=== PATIENT | male | born 2000 | race Caucasian/White ===

== ENCOUNTER 2022-01-16 18:43 | Inpatient (IN) ==
--- NOTE | 2022-01-16 18:46 | Emergency Department Note ---
Impression & Plan Depression with suicidal ideation, Anxiety ED Provider Note NAME: HEIDY CASTELLANOS AGE: 21 SEX: M : 2000 ARRIVES VIA: Walk-In INFORMANT: Patient, ED PROVIDER(S): Shay Whitt MD Chief Complaint: Concern for mental wellness, suicidal ideation and plan HPI: Patient presents due to concern for mental wellness issues. The patient states that he has been having frequent mood swings to where he does have extreme highs and extreme lows. Patient states that this is very debilitating. The patient denies any fevers chills chest pains or shortness of breath. The patient has been contemplating suicide [place] Patient states that he has had prior suicidal ideation in the past. Patient states that school is not going well since the mood swings. Patient states that his sleep and appetite varied. Patient does feel safe at home and has no access to guns or weapons. The patient states that he did speak with a psychiatrist from his home as well as to [address] [place] [address] and they both suggested that the patient may be suffering from bipolar disorder and recommended to present here for further evaluation and treatment. The patient would like to seek inpatient treatment at this time. Patient denies any alcohol tobacco or drug use. Patient denies any homicidal ideation or auditory visual hallucinations. ROS: See HPI for pertinent positives and negatives. A total of 10 systems were reviewed and otherwise negative. Past medical history: See below Surgical history: See below Social history: See below Physical Exam: GENERAL: NAD, wearing glasses, wearing a mask, non-toxic. EYE EXAM: Normal conjunctiva. PERRL, no anisocoria and EOM's grossly intact w/o pain. NECK: Supple, no nuchal rigidity, no adenopathy, non-tender. No signs of meningismus. LUNGS: Clear to auscultation. Normal chest wall mechanics. HEART: NSR, no MRG. ABDOMEN: Abdomen soft, non-tender, normo-active bowel sounds, no masses, no rebound or guarding. BACK: No CVA TTP. SKIN: No rashes and no bruising. UPPER EXTREMITIES: Upper extremities are grossly normal. LOWER EXTREMITIES: Grossly normal, no edema. NEURO EXAM: A&O x3, cranial nerves II-XII grossly intact, normal speech, moves all 4 extremities on command w/o issue. Psych: Positive SI, negative HI or AVH. Differential diagnoses: Mood disorder, infection, hypoglycemia, electrolyte abnormalities, cardiac sources, intracerebral event, toxicologic, trauma, neurologic, as well as other pathologies. Course: Patient was seen and evaluated the bedside. Full history physical exam was performed. MDM: Patient was seen due to concern for mental wellness issues. Patient did have blood work completed was to medically cleared. He was seen and evaluated by the psych continuous pillowcase cutter. The patient was accepted to [facility] for voluntary inpatient treatment. Past Med/Surg History Medical History (Updated 01/16/22 @ 22:59 by Shay Whitt MD) Anxiety Depression Surgical History No significant past surgical history Social History (Updated 01/16/22 @ 19:04 by Shay Whitt MD) Smoking Status: Never smoker Hx Alcohol Use: No Hx Substance Use: No Preferred Language: Somali Feels Safe at Home: Yes Allergies Allergies Allergy/AdvReac Type Severity Reaction Status Date / Time No Known Allergies Allergy Verified 08/26/21 23:55 Home Meds Home Medications Medication Instructions Recorded Confirmed fluoxetine 20 mg capsule (Prozac) 20 mg PO QAM 08/20/21 08/26/21 guanfacine 3 mg tablet,extended 3 mg PO QAM 08/20/21 08/26/21 release 24 hr lisdexamfetamine 70 mg capsule 70 mg PO QAM 08/20/21 08/26/21 (Vyvanse) ibuprofen 200 mg tablet (Motrin IB) 400 mg PO USEASDIRECTD PRN 08/26/21 08/26/21 Results & Data (ED) Vital Signs Vital Signs - 24 hr 01/16/22 18:43 01/16/22 19:35 01/16/22 22:38 Temperature 36.8 C Temperature Source Oral Pulse Rate 99 H Pulse Rate [Finger] 90 Respiratory Rate 18 18 Blood Pressure 149/76 H Blood Pressure [Right Arm] 132/76 Blood Pressure Mean [Right Arm] 94 Pulse Oximetry 98 99 Oxygen Delivery Method Room Air Room Air Sepsis Recent Fever Within 48 Hours No Sepsis New/Unexplained Change in Mental Status No Sepsis Action Taken by Nursing No Action Required Home Medications Current Medication List: was personally reviewed by me Laboratory Data Attestation: I reviewed the patient's lab results. Result diagrams: 01/16/22 19:50 01/16/22 19:50 Lab Results 01/16/22 01/16/22 01/16/22 Range/Units 19:35 19:35 19:35 WBC (4.8-10.8) K/uL RBC (4.7-6.1) M/uL Hgb (14.0-18.0) g/dL Hct (42-52) % MCV (80-100) fL MCH (25-34) pg MCHC (32-36) g/dL RDW Std Deviation (36.4-46.3) fL RDW Coeff of Brigida (11.5-14.5) % Plt Count (130-400) K/uL MPV (7.4-10.4) fL Immature Gran % (Auto) % Neut % (Auto) % Lymph % (Auto) % [facility] % (Auto) % Eos % (Auto) % Baso % (Auto) % Neut # (Auto) (1.4-6.5) K/uL Lymph # (Auto) (1.2-3.4) K/uL [facility]lor # (Auto) (0.11-0.59) K/uL Eos # (Auto) (0-0.5) K/uL Baso # (Auto) (0-0.2) K/uL Immature Gran # (Auto) (0.00-0.02) K/uL Sodium (136-145) mmol/L Potassium (3.5-5.1) mmol/L Chloride (98-107) mmol/L Carbon Dioxide (21-32) mmol/L Anion Gap (3-11) BUN (6-23) mg/dl Creatinine (0.6-1.4) mg/dl Est Cr Clr Drug Dosing ml/min Est GFR ( Amer) ml/min Est GFR (Non-Af Amer) ml/min BUN/Creatinine Ratio (10-20) Glucose (70-99(Fasting)) mg/dl Calcium (8.5-10.1) mg/dl Total Bilirubin (0.2-1.0) mg/dl AST (13-39) U/L ALT (7-52) U/L Alkaline Phosphatase (34-104) U/L Total Protein (6.0-8.3) gm/dl Albumin (3.4-5.0) gm/dl Globulin (2.5-4.0) gm/dl Albumin/Globulin Ratio (0.9-2) TSH (0.300-4.500) uIu/ml Urine Color Yellow Urine Appearance Turbid A (Clear) Urine pH 6.5 (4.5-7.5) Ur Specific [place] 1.025 (1.000-1.030) Urine Protein Negative (Negative) Urine Glucose (UA) Negative (Negative) Urine Ketones Negative (Negative) Urine Blood Negative (Negative) Urine Nitrite Negative (Negative) Urine Bilirubin Negative (Negative) Urine Urobilinogen Negative (Negative) Ur Leukocyte Esterase Negative (Negative) Urine WBC (Auto) 1-5 (0-5) /hpf Urine RBC (Auto) 10-30 H (0-4) /hpf U Hyaline Cast (Auto) 1-5 (0-5) /lpf U Epithel Cells (Auto) 20-30 H (0-5) /lpf Urine Bacteria (Auto) Negative (Negative) Salicylates (3.0-30) mg/dl Urine Opiates Screen Neg (Neg) Ur Methadone, Qual Neg (Neg) Acetaminophen (10-30) ug/ml Urine Barbiturates Neg (Neg) Ur Phencyclidine (PCP) Neg (Neg) U Amphetamin/Meth Scrn Neg (Neg) MDMA (Ecstasy) Screen Neg (Neg) U Benzodiazepines Scrn Neg (Neg) Ur Cocaine Metabolite Neg (Neg) U Marijuana (THC) Screen Neg (Neg) Ethyl Alcohol mg/dL (<10.0) mg/dl SARS-CoV-2, RNA, NAAT NEGATIVE (NEGATIVE) 01/16/22 01/16/22 01/16/22 Range/Units 19:50 19:50 19:50 WBC 6.95 (4.8-10.8) K/uL RBC 5.03 (4.7-6.1) M/uL Hgb 15.3 (14.0-18.0) g/dL Hct 45.8 (42-52) % MCV 91.1 (80-100) fL MCH 30.4 (25-34) pg MCHC 33.4 (32-36) g/dL RDW Std Deviation 45.8 (36.4-46.3) fL RDW Coeff of Brigida 13.7 (11.5-14.5) % Plt Count 323 (130-400) K/uL MPV 10.5 H (7.4-10.4) fL Immature Gran % (Auto) 0.4 % Neut % (Auto) 58.7 % Lymph % (Auto) 30.5 % Baylor % (Auto) 8.3 % Eos % (Auto) 2.0 % Baso % (Auto) 0.1 % Neut # (Auto) 4.07 (1.4-6.5) K/uL Lymph # (Auto) 2.12 (1.2-3.4) K/uL Baylor # (Auto) 0.58 (0.11-0.59) K/uL Eos # (Auto) 0.14 (0-0.5) K/uL Baso # (Auto) 0.01 (0-0.2) K/uL Immature Gran # (Auto) 0.03 H (0.00-0.02) K/uL Sodium 139 (136-145) mmol/L Potassium 3.9 (3.5-5.1) mmol/L Chloride 102 (98-107) mmol/L Carbon Dioxide 28 (21-32) mmol/L Anion Gap 9 (3-11) BUN 14 (6-23) mg/dl Creatinine 0.58 L (0.6-1.4) mg/dl Est Cr Clr Drug Dosing 211.5 ml/min Est GFR ( Amer) > 150.0 ml/min Est GFR (Non-Af Amer) 147.8 ml/min BUN/Creatinine Ratio 24.1 H (10-20) Glucose 103 H (70-99(Fasting)) mg/dl Calcium 9.9 (8.5-10.1) mg/dl Total Bilirubin 0.3 (0.2-1.0) mg/dl AST 33 (13-39) U/L ALT 63 H (7-52) U/L Alkaline Phosphatase 110 H (34-104) U/L Total Protein 7.8 (6.0-8.3) gm/dl Albumin 4.8 (3.4-5.0) gm/dl Globulin 3.0 (2.5-4.0) gm/dl Albumin/Globulin Ratio 1.6 (0.9-2) TSH 1.185 (0.300-4.500) uIu/ml Urine Color Urine Appearance (Clear) Urine pH (4.5-7.5) Ur Specific [place] (1.000-1.030) Urine Protein (Negative) Urine Glucose (UA) (Negative) Urine Ketones (Negative) Urine Blood (Negative) Urine Nitrite (Negative) Urine Bilirubin (Negative) Urine Urobilinogen (Negative) Ur Leukocyte Esterase (Negative) Urine WBC (Auto) (0-5) /hpf Urine RBC (Auto) (0-4) /hpf U Hyaline Cast (Auto) (0-5) /lpf U Epithel Cells (Auto) (0-5) /lpf Urine Bacteria (Auto) (Negative) Salicylates (3.0-30) mg/dl Urine Opiates Screen (Neg) Ur Methadone, Qual (Neg) Acetaminophen (10-30) ug/ml Urine Barbiturates (Neg) Ur Phencyclidine (PCP) (Neg) U Amphetamin/Meth Scrn (Neg) MDMA (Ecstasy) Screen (Neg) U Benzodiazepines Scrn (Neg) Ur Cocaine Metabolite (Neg) U Marijuana (THC) Screen (Neg) Ethyl Alcohol mg/dL (<10.0) mg/dl SARS-CoV-2, RNA, NAAT (NEGATIVE) 01/16/22 01/16/22 Range/Units 19:50 19:50 WBC (4.8-10.8) K/uL RBC (4.7-6.1) M/uL Hgb (14.0-18.0) g/dL Hct (42-52) % MCV (80-100) fL MCH (25-34) pg MCHC (32-36) g/dL RDW Std Deviation (36.4-46.3) fL RDW Coeff of Brigida (11.5-14.5) % Plt Count (130-400) K/uL MPV (7.4-10.4) fL Immature Gran % (Auto) % Neut % (Auto) % Lymph % (Auto) % Baylor % (Auto) % Eos % (Auto) % Baso % (Auto) % Neut # (Auto) (1.4-6.5) K/uL Lymph # (Auto) (1.2-3.4) K/uL Baylor # (Auto) (0.11-0.59) K/uL Eos # (Auto) (0-0.5) K/uL Baso # (Auto) (0-0.2) K/uL Immature Gran # (Auto) (0.00-0.02) K/uL Sodium (136-145) mmol/L Potassium (3.5-5.1) mmol/L Chloride (98-107) mmol/L Carbon Dioxide (21-32) mmol/L Anion Gap (3-11) BUN (6-23) mg/dl Creatinine (0.6-1.4) mg/dl Est Cr Clr Drug Dosing ml/min Est GFR ( Amer) ml/min Est GFR (Non-Af Amer) ml/min BUN/Creatinine Ratio (10-20) Glucose (70-99(Fasting)) mg/dl Calcium (8.5-10.1) mg/dl Total Bilirubin (0.2-1.0) mg/dl AST (13-39) U/L ALT (7-52) U/L Alkaline Phosphatase (34-104) U/L Total Protein (6.0-8.3) gm/dl Albumin (3.4-5.0) gm/dl Globulin (2.5-4.0) gm/dl Albumin/Globulin Ratio (0.9-2) TSH (0.300-4.500) uIu/ml Urine Color Urine Appearance (Clear) Urine pH (4.5-7.5) Ur Specific [place] (1.000-1.030) Urine Protein (Negative) Urine Glucose (UA) (Negative) Urine Ketones (Negative) Urine Blood (Negative) Urine Nitrite (Negative) Urine Bilirubin (Negative) Urine Urobilinogen (Negative) Ur Leukocyte Esterase (Negative) Urine WBC (Auto) (0-5) /hpf Urine RBC (Auto) (0-4) /hpf U Hyaline Cast (Auto) (0-5) /lpf U Epithel Cells (Auto) (0-5) /lpf Urine Bacteria (Auto) (Negative) Salicylates < 3.0 L (3.0-30) mg/dl Urine Opiates Screen (Neg) Ur Methadone, Qual (Neg) Acetaminophen < 3 L (10-30) ug/ml Urine Barbiturates (Neg) Ur Phencyclidine (PCP) (Neg) U Amphetamin/Meth Scrn (Neg) MDMA (Ecstasy) Screen (Neg) U Benzodiazepines Scrn (Neg) Ur Cocaine Metabolite (Neg) U Marijuana (THC) Screen (Neg) Ethyl Alcohol mg/dL < 10.0 (<10.0) mg/dl SARS-CoV-2, RNA, NAAT (NEGATIVE) Discharge Plan Visit Data Chief Complaint: Mental Health Evaluation Stated Complaint: [facility] ED Provider: Shay Whitt Discharge Problem: Depression with suicidal ideation, Anxiety Patient Disposition: Admitted As Inpatient Discharge Instructions Interventions: ED Discharge Assessment Last Done: 01/16/22 22:38
[2022-01-16 19:49] LABS: Appearance Urine Turbid (Clear); Bacteria Urine Automated Negative (Negative); Bilirubin Urine Negative (Negative); Blood Urine Negative (Negative); Color Urine Yellow; Epithelial Cell Urine Auto 20-30 /lpf (0-5); Glucose Urine UA Negative (Negative); Ketones Urine Negative (Negative); Leukocyte Esterase Urine Negative (Negative); Nitrite Urine Negative (Negative); Protein Urine Negative (Negative); Specific Gravity Urine 1.025 (1.000-1.030); Urobilinogen Urine Negative (Negative); pH Urine 6.5 (4.5-7.5)
[2022-01-16 20:17] LABS: Basophils # (auto) 0.01 K/uL (0-0.2); Basophils % (auto) 0.1 %; Eosinophils # (auto) 0.14 K/uL (0-0.5); Hematocrit (blood only) 45.8 % (42-52); Hemoglobin 15.3 g/dL (14.0-18.0); Immature Granulocytes # (auto) 0.03 K/uL (0.00-0.02); Immature Granulocytes % (auto) 0.4 %; Lymphocytes # (auto) 2.12 K/uL (1.2-3.4); Lymphocytes % (auto) 30.5 %; Mean Corpuscular Hemoglobin 30.4 pg (25-34); Mean Corpuscular Hgb Conc 33.4 g/dL (32-36); Mean Corpuscular Volume 91.1 fL (80-100); Mean Platelet Volume 10.5 fL (7.4-10.4); Monocytes # (auto) 0.58 K/uL (0.11-0.59); Monocytes % (auto) 8.3 %; Neutrophils # (auto) 4.07 K/uL (1.4-6.5); Neutrophils % (auto) 58.7 %; Platelet Count 323 K/uL (130-400); RDW Coefficient of Variation 13.7 % (11.5-14.5); RDW Standard Deviation 45.8 fL (36.4-46.3); Red Blood Count 5.03 M/uL (4.7-6.1); White Blood Count 6.95 K/uL (4.8-10.8)
[2022-01-16 20:20] LABS: Amphetamines+Metham, Urine Neg (Neg); Barbiturates, Urine Neg (Neg); Benzodiazepine, Urine Neg (Neg); Cocaine, Urine Neg (Neg); MDMA (Ecstacy), Urine Neg (Neg); Methadone, Urine Neg (Neg); Opiate, Urine Neg (Neg); Phencyclidine, Urine Neg (Neg)
[2022-01-16 20:41] LABS: Alanine Aminotransferase 63 U/L (7-52); Albumin Globulin Ratio 1.6 (0.9-2); Albumin Level 4.8 gm/dl (3.4-5.0); Alkaline Phosphatase 110 U/L (34-104); Anion Gap 9 (3-11); Aspartate Aminotransferase 33 U/L (13-39); BUN Creatinine Ratio 24.1 (10-20); Bilirubin,Total 0.3 mg/dl (0.2-1.0); Blood Urea Nitrogen 14 mg/dl (6-23); Calcium 9.9 mg/dl (8.5-10.1); Carbon Dioxide 28 mmol/L (21-32); Chloride 102 mmol/L (98-107); Creatinine Clr Calc Pharmacy 211.5 ml/min; Est GFR (African American) > 150.0 ml/min; Est GFR (Non-African American) 147.8 ml/min; Glucose 103 mg/dl (70-99(Fasting)); Potassium 3.9 mmol/L (3.5-5.1); Sodium 139 mmol/L (136-145); Total Protein 7.8 gm/dl (6.0-8.3)
[2022-01-16 20:43] LABS: Acetaminophen < 3 ug/ml (10-30); Salicylate < 3.0 mg/dl (3.0-30)
[2022-01-16] MEDS ORDERED: hydrOXYzine HCl 25 MG TAB PO PRN (22:28)
[2022-01-16] MEDS ORDERED: BISMUTH SUBSALICYLATE LIQD 236 ML PO PRN (22:28)
[2022-01-16] MEDS ORDERED: ALUMINUM/MAGNESIUM SUSP 30 ML UDC PO PRN (22:28)
[2022-01-16] MEDS ORDERED: MAGNESIUM HYDROXIDE SUSP 30 ML UDC PO PRN (22:28)
[2022-01-16] MEDS ORDERED: ACETAMINOPHEN 325 MG TAB PO PRN (22:28)
[2022-01-17] MEDS ORDERED: FLUARIX QUADRIVALENT 0.5 ML SYR IM ONE (00:25)
--- NOTE | 2022-01-17 12:56 | History & Physical ---
Date of Service January 17, 2022 Impression / Recommendations Impression Heidy is a 21 yo male who presents with significant vegetative depression and recent SI with near attempt by jumping from a bridge during a mixed phase. He describes clear but brief periods of hypomania. The cycling interferes with his ability to function with school even as his ADHD is treated. He has been on stimulant medication for more than a decade so it is unlikely a major contributor to his mood changes. (1) Bipolar II disorder with or without full interepisode recovery: (2) Attention deficit disorder (ADD) in adult: The patient was admitted to the [facility] on q15 min checks (behavioral with suicide precautions) for safety. The patient will participate in group, recreational, and milieu therapies and will be offered additional individual and family sessions as clinically appropriate. His home medications were held on admission as antidepressants can contribute to cycling and his Vyvanse is non formulary. Guanfacine ER will be ordered as reviewed risks/benefits and likely helpful for tics. Risks/benefits/alternatives were reviewed re: antipsychotics for mood. Discussion included but was not limited to metabolic side effects, risks of TD and suicidal thoughts. There were no abnormal motor movements other than the rare facial tics at baseline. Fasting glucose and lipid panel ordered for baseline monitoring. Also discussed options of lithium or lamictal. Patient preferred trial of Abilify given how rapidly he could benefit. Will begin 2.5 mg today and then 5 mg qam starting tomorrow. Inventory Assets Strengths: sought help, intelligent Needs: medical withdrawal, family involvement Risk Factors Assessment Male: Yes Do You Have Access To A Gun?: No (not in dorm but need to confirm at home in [place]) Mental Health Diagnoses: Yes Substance Use Disorders: No Previous Attempt: Yes (multiple near attempts (acts of furtherance)) Previous Psychiatric Hospitalization: No Protective Factors Assessment Employed: No Supportive Family: Yes Good Rapport with Provider: Yes Psychiatric History Identifying Data HEIDY CASTELLANOS is a 21-year-old M, [employer] freshman from [place], has a history of undisclosed near suicide attempts, and was admitted on 01/16/22 22:49 on a 201 voluntary commitment for SI with plan. Chief Complaint "My mood has been all over the place and yes a few days ago I would have jumped if my body hadn't froze". History of Present Illness Heidy was referred by [facility] following a crisis call as he was experiencing severe depression and had act of furtherance by going to a bridge with the intention to commit suicide 2 days prior. He reports that he couldn't focus and had "mixed" depression and restlessness and "couldn't stand it anymore, I'm useless with school and can't focus". Since Friday he has been essentially in bed, hypersomnolent (sleeping greater than 10 hours and still being tired), and not eating well. "I have to force myself to eat." He notes anhedonia and inability to process where as a few days prior he had racing thoughts, increased energy, and feeling somewhat impulsive. He reports a recent period of inflated self esteem (though can't think of an example). During periods of elevated mood that last about 4-5 days he will sleep 3 hours a night and be "super productive" with increased rate of speech. He buys "stupid stuff". He becomes less productive due to fatigue as the episode progresses. His depressed periods can last 2-5 weeks. He is functioning so poorly that he is thinking of withdrawing for the semester and going home but he is hesitant to tell his parents "everything" as he worries they will make him attend school closer to home. He denies psychotic symptoms. He reports taking his prescribed medications regularly. He was rather evasive re: details of past near suicide attempts, one in 2018 sounds like he may have considered jumping as well and perhaps 2 occasions having a gun out at home. Past Psychiatric History Current Psychiatric Diagnosis: depression with SI, anxiety Previous Psych Admissions: none Do You Have Access To A Gun?: No (not in dorm but need to confirm at home in [place]) Describe Attempts in the Past: prior near attempt to jump from bridge, two near attempts with firearm Past Medication Trials: only current meds per patient (fluoxetine 20 mg, Intuniv 3 mg, lisdexamfetamine 70 mg), was dx with ADHD at age 8 and on Vyvanse "since"; denies a history of tics related to ADHD or stimulant medication Past Head Trauma/Neuro History History of Concussion/Seizure: No Allergies Allergy/AdvReac Type Severity Reaction Status Date / Time No Known Allergies Allergy Verified 08/26/21 23:55 Home Medications Medication Instructions Recorded Confirmed Type fluoxetine 20 mg capsule (Prozac) 20 mg PO QAM 08/20/21 08/26/21 History guanfacine 3 mg tablet,extended 3 mg PO QAM 08/20/21 08/26/21 History release 24 hr lisdexamfetamine 70 mg capsule 70 mg PO QAM 08/20/21 08/26/21 History (Vyvanse) ibuprofen 200 mg tablet (Motrin IB) 400 mg PO USEASDIRECTD PRN 08/26/21 08/26/21 History Family History Family History of: None Alcohol History Hx of Alcohol Use Over the Past 12 Months: No AUDIT Total Score: 0 Smoking Use Have You Smoked or Used Tobacco Products in the Last 30 Days: No Smoking Status: Never smoker Substance History Hx of Prescription Med Misuse Over the Past 12 Months: No Hx of Over the Counter Med Misuse Over the Past 12 Months: No Hx of Inhalent Misuse Over the Past 12 Months: No Hx of Organic Substance Use Over the Past 12 Months: No Hx of Illegal Substances/Street Drug Use Over Past 12 Months: No Problems as a Result of Past Substance Use: None Identified Personal History Living Arrangements: Dorm Living Arrangements Comments: lives with one roommate in dorm on campus Childhood: only child, parents , fair relationship with parents Highest Grade Completed: Some College Highest Grade Completed Comment: currently a Freshman at [employer], 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 Employment Status: Student Marital Status: Single Number Of Children: 0 Beliefs That Will Affect Care: None Current Legal Problems: No Hx Traumatic Life Events: No Patient History Medical History Anxiety Depression Surgical History No significant past surgical history Social History Smoking Status: Never smoker Hx Alcohol Use: No Hx Substance Use: No Preferred Language: Swedish Communication Ability: Effective 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 Beliefs That Will Affect Care: None Feels Safe at Home: Yes Assistive Devices: Glasses Review of Systems Review of Systems: All systems reviewed & are unremarkable except as noted in HPI & below Physical Exam Psychiatric: Orientation: alert and oriented x 3 Apperance: appropriately dressed and appropriately groomed Eye Contact: good eye contact Motor Behavior: + abnormal motor movements (rare facial tic) Speech: normal rate/rhythm/volume of speech Affect: + depressed affect Mood: + depressed mood Thought Process: goal directed thought process Thought Content: reality based without delusions Suicidal Thoughts: denies suicidal intent (on unit); + reports suicidal thoughts and + reports suicidal plan (jump from bridge) Homicidal Thoughts: denies homicidal thoughts Hallucinations: no auditory hallucinations and no visual hallucinations Cognition: attention grossly intact and language grossly intact Estimated Intelligence: consistent with education level Insight: + limited insight Judgement: + limited judgement Vital Signs (Past 24 Hours): Last Vital Signs Temp 36.5 C 01/17/22 06:39 Pulse 96 H 01/17/22 06:40 Resp 16 01/17/22 06:39 BP 124/86 01/17/22 06:40 Pulse Ox 99 01/17/22 00:02 Exam Statement: A physical exam was performed in the ED by Dr. Whitt for the purposes of medical clearance. I accept that physical as correct and adequate for the purposes of the inpatient physical exam. Results & Data ([facility]) Laboratory Results Laboratory Results - last 24 hr 01/16/22 01/16/22 01/16/22 19:35 19:35 19:35 WBC RBC Hgb Hct MCV MCH MCHC RDW Std Deviation RDW Coeff of Brigida Plt Count MPV Immature Gran % (Auto) Neut % (Auto) Lymph % (Auto) Bennett % (Auto) Eos % (Auto) Baso % (Auto) Neut # (Auto) Lymph # (Auto) Bennett # (Auto) Eos # (Auto) Baso # (Auto) Immature Gran # (Auto) Sodium Potassium Chloride Carbon Dioxide Anion Gap BUN Creatinine Est Cr Clr Drug Dosing Est GFR ( Amer) Est GFR (Non-Af Amer) BUN/Creatinine Ratio Glucose Calcium Total Bilirubin AST ALT Alkaline Phosphatase Total Protein Albumin Globulin Albumin/Globulin Ratio TSH Urine Color Yellow Urine Appearance Turbid A Urine pH 6.5 Ur Specific [place] 1.025 Urine Protein Negative Urine Glucose (UA) Negative Urine Ketones Negative Urine Blood Negative Urine Nitrite Negative Urine Bilirubin Negative Urine Urobilinogen Negative Ur Leukocyte Esterase Negative Urine WBC (Auto) 1-5 Urine RBC (Auto) 10-30 H U Hyaline Cast (Auto) 1-5 U Epithel Cells (Auto) 20-30 H Urine Bacteria (Auto) Negative Salicylates Urine Opiates Screen Neg Ur Methadone, Qual Neg Acetaminophen Urine Barbiturates Neg Ur Phencyclidine (PCP) Neg U Amphetamin/Meth Scrn Neg MDMA (Ecstasy) Screen Neg U Benzodiazepines Scrn Neg Ur Cocaine Metabolite Neg U Marijuana (THC) Screen Neg Ethyl Alcohol mg/dL SARS-CoV-2, RNA, NAAT NEGATIVE 01/16/22 01/16/22 01/16/22 19:50 19:50 19:50 WBC 6.95 RBC 5.03 Hgb 15.3 Hct 45.8 MCV 91.1 MCH 30.4 MCHC 33.4 RDW Std Deviation 45.8 RDW Coeff of Brigida 13.7 Plt Count 323 MPV 10.5 H Immature Gran % (Auto) 0.4 Neut % (Auto) 58.7 Lymph % (Auto) 30.5 Bennett % (Auto) 8.3 Eos % (Auto) 2.0 Baso % (Auto) 0.1 Neut # (Auto) 4.07 Lymph # (Auto) 2.12 Bennett # (Auto) 0.58 Eos # (Auto) 0.14 Baso # (Auto) 0.01 Immature Gran # (Auto) 0.03 H Sodium 139 Potassium 3.9 Chloride 102 Carbon Dioxide 28 Anion Gap 9 BUN 14 Creatinine 0.58 L Est Cr Clr Drug Dosing 211.5 Est GFR ( Amer) > 150.0 Est GFR (Non-Af Amer) 147.8 BUN/Creatinine Ratio 24.1 H Glucose 103 H Calcium 9.9 Total Bilirubin 0.3 AST 33 ALT 63 H Alkaline Phosphatase 110 H Total Protein 7.8 Albumin 4.8 Globulin 3.0 Albumin/Globulin Ratio 1.6 TSH 1.185 Urine Color Urine Appearance Urine pH Ur Specific [place] Urine Protein Urine Glucose (UA) Urine Ketones Urine Blood Urine Nitrite Urine Bilirubin Urine Urobilinogen Ur Leukocyte Esterase Urine WBC (Auto) Urine RBC (Auto) U Hyaline Cast (Auto) U Epithel Cells (Auto) Urine Bacteria (Auto) Salicylates Urine Opiates Screen Ur Methadone, Qual Acetaminophen Urine Barbiturates Ur Phencyclidine (PCP) U Amphetamin/Meth Scrn MDMA (Ecstasy) Screen U Benzodiazepines Scrn Ur Cocaine Metabolite U Marijuana (THC) Screen Ethyl Alcohol mg/dL SARS-CoV-2, RNA, NAAT 01/16/22 01/16/22 19:50 19:50 WBC RBC Hgb Hct MCV MCH MCHC RDW Std Deviation RDW Coeff of Brigida Plt Count MPV Immature Gran % (Auto) Neut % (Auto) Lymph % (Auto) Bennett % (Auto) Eos % (Auto) Baso % (Auto) Neut # (Auto) Lymph # (Auto) Bennett # (Auto) Eos # (Auto) Baso # (Auto) Immature Gran # (Auto) Sodium Potassium Chloride Carbon Dioxide Anion Gap BUN Creatinine Est Cr Clr Drug Dosing Est GFR ( Amer) Est GFR (Non-Af Amer) BUN/Creatinine Ratio Glucose Calcium Total Bilirubin AST ALT Alkaline Phosphatase Total Protein Albumin Globulin Albumin/Globulin Ratio TSH Urine Color Urine Appearance Urine pH Ur Specific [place] Urine Protein Urine Glucose (UA) Urine Ketones Urine Blood Urine Nitrite Urine Bilirubin Urine Urobilinogen Ur Leukocyte Esterase Urine WBC (Auto) Urine RBC (Auto) U Hyaline Cast (Auto) U Epithel Cells (Auto) Urine Bacteria (Auto) Salicylates < 3.0 L Urine Opiates Screen Ur Methadone, Qual Acetaminophen < 3 L Urine Barbiturates Ur Phencyclidine (PCP) U Amphetamin/Meth Scrn MDMA (Ecstasy) Screen U Benzodiazepines Scrn Ur Cocaine Metabolite U Marijuana (THC) Screen Ethyl Alcohol mg/dL < 10.0 SARS-CoV-2, RNA, NAAT Current Inpatient Medications Current Inpatient Medications: Current Inpatient Medications Acetaminophen (Acetaminophen 325 Mg Tab) 650 mg PO Q4H PRN PRN Reason: Headache or Minor Fever Stop: 02/15/22 22:27 Al Hydrox/Mg Hydrox/Simethicone (Aluminum/Magnesium Susp 30 Ml Udc) 30 ml PO Q4H PRN PRN Reason: GI Upset Stop: 02/15/22 22:27 Bismuth Subsalicylate (Bismuth Subsalicylate Liqd 236 Ml) 15 ml PO PRN PRN PRN Reason: Loose Stool Stop: 02/15/22 22:27 Hydroxyzine HCl (Hydroxyzine Hcl 25 Mg Tab) 50 mg PO HSZ PRN PRN Reason: Insomnia Stop: 02/15/22 22:27 Hydroxyzine HCl (Hydroxyzine Hcl 25 Mg Tab) 25 mg PO Q4H PRN PRN Reason: Anxiety Stop: 02/15/22 22:27 Magnesium Hydroxide (Magnesium Hydroxide Susp 30 Ml Udc) 30 ml PO DAILY PRN PRN Reason: Constipation Stop: 02/15/22 22:27 Sodium Chloride (Sodium Chloride 0.65% Na Soln 45 Ml (Sandoval)) 1 - 2 sprays NA PRN PRN PRN Reason: Nasal Dryness/Congestion Stop: 02/15/22 22:27
[2022-01-17] MEDS ORDERED: ARIPiprazole 5 MG TAB PO ONE (13:15)
[2022-01-18 08:59] LABS: Chol HDL Ratio 8.2 (0-5)
[2022-01-18] MEDS: ARIPiprazole 5 MG TAB PO SCH (09:07)
--- NOTE | 2022-01-18 11:20 | Psychiatric Progress Note ---
Date of Service January 18, 2022 Impression / Recommendations Karina Fabian is a 21 yo male who presents with significant vegetative depression and recent SI with near attempt by jumping from a bridge during a mixed phase. He describes clear but brief periods of hypomania. The cycling interferes with his ability to function with school even as his ADHD is treated. He has been on stimulant medication for more than a decade so it is unlikely a major contributor to his mood changes. 01/18/22: no significant change, tolerating Abilify. Unclear if realistic for him to "catch up" on 3-4 weeks of work or if parents truly aware of the severity of his condition. (1) Bipolar II disorder with or without full interepisode recovery: (2) Attention deficit disorder (ADD) in adult: (3) Hypercholesterolemia with hypertriglyceridemia: 01/18/22: routine screening, will need f/u with PCP and possibly transportation manager. 01/18/22: declines trial of Adderall to replace non-formulary Vyvanse. Does feel his mood was wose on 70 mg Vyvanse and reports his most recent rx was for 20 mg. He is thinking would like prn stimulant upon discharge. Needs family meeting and confirmation re: guns at home as even if returns to school, spring break is near. 01/17/22: The patient was admitted to the [facility] (health system mental health unit) on q15 min checks (behavioral with suicide precautions) for safety. The patient will participate in group, recreational, and milieu therapies and will be offered additional individual and family sessions as clinically appropriate. His home medications were held on admission as antidepressants can contribute to cycling and his Vyvanse is non formulary. Guanfacine ER will be ordered as reviewed risks/benefits and likely helpful for tics. Risks/benefits/alternatives were reviewed re: antipsychotics for mood. Discussion included but was not limited to metabolic side effects, risks of TD and suicidal thoughts. There were no abnormal motor movements other than the rare facial tics at baseline. Fasting glucose and lipid panel ordered for baseline monitoring. Also discussed options of lithium or lamictal. Patient preferred trial of Abilify given how rapidly he could benefit. Will begin 2.5 mg today and then 5 mg qam starting tomorrow. Inventory Assets Strengths: sought help, intelligent Needs: medical withdrawal, family involvement Risk Factors Assessment Male: Yes Do You Have Access To A Gun?: No (not in dorm but need to confirm at home in [place]) Mental Health Diagnoses: Yes Substance Use Disorders: No Previous Attempt: Yes (multiple near attempts (acts of furtherance)) Previous Psychiatric Hospitalization: No Protective Factors Assessment Employed: No Supportive Family: Yes Good Rapport with Provider: Yes Interval History Identifying Information HEIDY CASTELLANOS is a 21-year-old M, [employer] freshman from [place], has a history of undisclosed near suicide attempts, and was admitted on 01/16/22 22:49 on a 201 voluntary commitment for SI with plan. Chief Complaint "I don't feel any different yet---low energy and motivation". Review of Systems Sleep Information Total Hours of Sleep: 8.75 Sleep Comments: pt appeared to sleep 1.75 hrs during evening shift. pt on q-15 minute checks Meal Information Percent Meal Consumed - Breakfast: 100 Percent Meal Consumed - Lunch: 100 Percent Meal Consumed - Dinner: 100 Subjective Subjective Patient was seen & assessed and interval progress reviewed with treatment team. Patient reports telling his father about the hospitalization and they are both focussed on him getting back to class "as soon as possible". Reviewed with patient that we need to confirm that his parents are aware of the severity of his symptoms. He now reports a medical withdrawal last semester and "we won't get the money back this time." Denies side effects from Abilify. Rather quiet in groups and flat in appearance. Physical Exam Psychiatric Orientation: alert and oriented x 3 Apperance: appropriately dressed and appropriately groomed Eye Contact: good eye contact Motor Behavior: no abnormal motor movements Speech: normal rate/rhythm/volume of speech Affect: + depressed affect Mood: + depressed mood Thought Process: goal directed thought process Thought Content: reality based without delusions Suicidal Thoughts: denies suicidal intent (on unit); + reports suicidal thoughts and + reports suicidal plan (jump from bridge) Homicidal Thoughts: denies homicidal thoughts Hallucinations: no auditory hallucinations and no visual hallucinations Cognition: attention grossly intact and language grossly intact Estimated Intelligence: consistent with education level Insight: + limited insight Judgement: + limited judgement Vital Signs (Past 24 Hours) Last Vital Signs Temp 36.6 C 01/18/22 06:43 Pulse 94 H 01/18/22 06:44 Resp 16 01/18/22 06:43 BP 105/69 01/18/22 06:44 Pulse Ox 99 01/17/22 00:02 Results & Data ([facility]) Laboratory Results Laboratory Results - last 24 hr 01/18/22 07:50 Fasting Glucose 93 Triglycerides 372 H Cholesterol 288 H LDL Cholesterol, Calc 179 VLDL Cholesterol, Calc 74 H HDL Cholesterol 35 Cholesterol/HDL Ratio 8.2 H Current Inpatient Medications Current Inpatient Medications: Current Inpatient Medications Acetaminophen (Acetaminophen 325 Mg Tab) 650 mg PO Q4H PRN PRN Reason: Headache or Minor Fever Stop: 02/15/22 22:27 Al Hydrox/Mg Hydrox/Simethicone (Aluminum/Magnesium Susp 30 Ml Udc) 30 ml PO Q4H PRN PRN Reason: GI Upset Stop: 02/15/22 22:27 Aripiprazole (Aripiprazole 5 Mg Tab) 5 mg PO QAM JAC Stop: 02/17/22 08:59 Last Admin: 01/18/22 09:07 Dose: 5 mg Documented by: Bismuth Subsalicylate (Bismuth Subsalicylate Liqd 236 Ml) 15 ml PO PRN PRN PRN Reason: Loose Stool Stop: 02/15/22 22:27 Guanfacine HCl (Guanfacine Hcl 1 Mg Ertab) 3 mg PO DAILY JAC Stop: 02/16/22 13:14 Last Admin: 01/18/22 09:07 Dose: 3 mg Documented by: Hydroxyzine HCl (Hydroxyzine Hcl 25 Mg Tab) 50 mg PO HSZ PRN PRN Reason: Insomnia Stop: 02/15/22 22:27 Hydroxyzine HCl (Hydroxyzine Hcl 25 Mg Tab) 25 mg PO Q4H PRN PRN Reason: Anxiety Stop: 02/15/22 22:27 Magnesium Hydroxide (Magnesium Hydroxide Susp 30 Ml Udc) 30 ml PO DAILY PRN PRN Reason: Constipation Stop: 02/15/22 22:27 Sodium Chloride (Sodium Chloride 0.65% Na Soln 45 Ml ([place])) 1 - 2 sprays NA PRN PRN PRN Reason: Nasal Dryness/Congestion Stop: 02/15/22 22:27 Mental Health & Subst Abuse Tx Therapist Name of Therapist: None Acid Cutter Name of Acid Cutter: None Post Discharge Appointments Primary Care Physician Name Of Family Doctor: DENTON
[2022-01-19] MEDS: ARIPiprazole 5 MG TAB PO SCH (09:45)
--- NOTE | 2022-01-19 14:30 | Psychiatric Progress Note ---
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 He describes clear but brief periods of hypomania. The cycling interferes with his ability to function with school even as his ADHD is treated. He has been on stimulant medication for more than a decade so it is unlikely a major contributor to his mood changes but is being held currently. Diagnostically consistent with bipolar affective disorder, type 2 given no evidence for 5 days of symptoms meeting threshold for acute jose de jesus. Suspect also co-morbid ASD. 01/19/22: mood remains labile with limited insight and judgment which places him at ongoing high risk for suicide especially given his limited ability to discuss potential warning signs, triggers or ways he could seek help or utilize coping skills. He is tolerating the abilify and consents to further titration. Reviewed elevated lipid panel and need for follow-up with S after discharge, risk that abilify can further worsen this and counseled on importance of healthy diet and getting regular exercise. Also discussed social rhthyms and importance of maintaining regular sleep, exercise, meal routine. Will begin mood tracker. (1) Bipolar II disorder with or without full interepisode recovery: (2) Attention deficit disorder (ADD) in adult: (3) Hypercholesterolemia with hypertriglyceridemia: will need f/u with PCP and consideration to meet with asw/asuw tactical air controller. Motivational interviewing regarding increasing exercise which he agrees to. 01/19/22: Continuing to hold stimulant as he wonders if this contributed to his mood changes and hypomania. Family meeting held today and safety planning d one including counseling with Heidy about importance of removing access to guns at home and social work discussed this during his family meeting as well. Continue abilify titration to 7.5 mg qd for BPAD, II. 01/18/22: declines trial of Adderall to replace non-formulary Vyvanse. Does feel his mood was wose on 70 mg Vyvanse and reports his most recent rx was for 20 mg. He is thinking would like prn stimulant upon discharge. Needs family meeting and confirmation re: guns at home as even if returns to school, spring break is near. 01/17/22: The patient was admitted to the [facility] ([facility]) on q15 min checks (behavioral with suicide precautions) for safety. The patient will participate in group, recreational, and milieu therapies and will be offered additional individual and family sessions as clinically appropriate. His home medications were held on admission as antidepressants can contribute to cycling and his Vyvanse is non formulary. Guanfacine ER will be ordered as reviewed risks/benefits and likely helpful for tics. Risks/benefits/alternatives were reviewed re: antipsychotics for mood. Discussion included but was not limited to metabolic side effects, risks of TD and suicidal thoughts. There were no abnormal motor movements other than the rare facial tics at baseline. Fasting glucose and lipid panel ordered for baseline monitoring. Also discussed options of lithium or lamictal. Patient preferred trial of Abilify given how rapidly he could benefit. Will begin 2.5 mg today and then 5 mg qam starting tomorrow. Inventory Assets Strengths: sought help, intelligent Needs: medical withdrawal, family involvement Risk Factors Assessment Male: Yes Do You Have Access To A Gun?: No (not in dorm but need to confirm at home in [place]) Mental Health Diagnoses: Yes Substance Use Disorders: No Previous Attempt: Yes (multiple near attempts (acts of furtherance)) Previous Psychiatric Hospitalization: No Protective Factors Assessment Employed: No Supportive Family: Yes Good Rapport with Provider: Yes Interval History Identifying Information HEIDY CASTELLANOS is a 21-year-old M, [employer] freshman from [place], has a history of undisclosed near suicide attempts, and was admitted on 01/16/22 22:49 on a 201 voluntary commitment for SI with plan. Chief Complaint "I'm not sure how I'm doing". Review of Systems Sleep Information Total Hours of Sleep: 6.25 Sleep Comments: pt appeared to sleep 1.75 hrs during evening shift. pt on q-15 minute checks Meal Information Percent Meal Consumed - Breakfast: 100 Percent Meal Consumed - Lunch: 100 Percent Meal Consumed - Dinner: 100 Subjective Subjective Patient was seen & assessed and interval progress reviewed with treatment team nursing and social work. He continues to be quite isolative with very limited participation in groups. He notes he has been feeling like he is "crashing into depression" and hopes at some point he will be able to "lift out of it". Reviewed his history of rehearsal behaviors for suicide including researching the bridge he could jump from. He continues to have limited insight into how he would monitor his mood, what signs he can watch for to recognize a switch in his mood and notes that "I only now am I realizing that many of my issues were maybe because of my frequent mood changes". We review his pattern of periods of severe depression for which medications were never helpful followed by periods of elevated mood, "impulsivity", increased confidence, decreased sleep and increased productivity consistent with hypomania. He feels he is tolerating abilify well and is agreeable to a dose adjustment. He continues to struggle to think about what he will do after leaving the hospital though thinks he can likely catch up on his missed school work (about 4 weeks worth) and that if not he would drop a class. Stated that he "just needs 24 hours to do the math to see if I can catch up on my classes". Reviewed goals of reduction in mood swings and he agrees to start mood tracker, behavioral strategies he can use for ADHD to help with attention during classes, stable sleep and titration of abilify. He struggles to identify triggers or warning signs for SI stating "it just occurs" and that "usually my survival instinct kicks in" noting that he didn't attempt suicide by gun in the past because at the last moment he determined "there was a 3-4% chance I would miss and be permanently disfigured so I didn't do it". Physical Exam Psychiatric Orientation: alert and oriented x 3 Apperance: appropriately dressed and appropriately groomed Eye Contact: + fair eye contact Motor Behavior: no abnormal motor movements and + psychomotor agitation (bouncing leg repeatedly ) Speech: normal rate/rhythm/volume of speech (slightly expansive and rapid at times but interruptable ) Affect: + labile affect Mood: + depressed mood and + anxious mood Thought Process: + circumstantial thought process and + perseveration Thought Content: reality based without delusions Suicidal Thoughts: denies suicidal intent (intermittent SI, feels safe in the hospital and able to safety contract ); + reports suicidal thoughts and + reports suicidal plan (jump from bridge) Homicidal Thoughts: denies homicidal thoughts Hallucinations: no auditory hallucinations and no visual hallucinations Cognition: recent memory grossly intact, remote memory grossly intact and language grossly intact; + attention not intact (easily distracted) Estimated Intelligence: consistent with education level Insight: + limited insight Judgement: + limited judgement Vital Signs (Past 24 Hours) Last Vital Signs Temp 36.4 C L 01/19/22 06:00 Pulse 84 01/19/22 06:37 Resp 16 01/19/22 06:00 BP 99/62 L 01/19/22 06:37 Pulse Ox 99 01/17/22 00:02 Results & Data ([facility]) Current Inpatient Medications Current Inpatient Medications: Current Inpatient Medications Acetaminophen (Acetaminophen 325 Mg Tab) 650 mg PO Q4H PRN PRN Reason: Headache or Minor Fever Stop: 02/15/22 22:27 Al Hydrox/Mg Hydrox/Simethicone (Aluminum/Magnesium Susp 30 Ml Udc) 30 ml PO Q4H PRN PRN Reason: GI Upset Stop: 02/15/22 22:27 Aripiprazole (Aripiprazole 5 Mg Tab) 5 mg PO QAM JAC Stop: 02/17/22 08:59 Last Admin: 01/19/22 09:45 Dose: 5 mg Documented by: Bismuth Subsalicylate (Bismuth Subsalicylate Liqd 236 Ml) 15 ml PO PRN PRN PRN Reason: Loose Stool Stop: 02/15/22 22:27 Guanfacine HCl (Guanfacine Hcl 1 Mg Ertab) 3 mg PO DAILY JAC Stop: 02/16/22 13:14 Last Admin: 01/19/22 09:46 Dose: 3 mg Documented by: Hydroxyzine HCl (Hydroxyzine Hcl 25 Mg Tab) 50 mg PO HSZ PRN PRN Reason: Insomnia Stop: 02/15/22 22:27 Hydroxyzine HCl (Hydroxyzine Hcl 25 Mg Tab) 25 mg PO Q4H PRN PRN Reason: Anxiety Stop: 02/15/22 22:27 Magnesium Hydroxide (Magnesium Hydroxide Susp 30 Ml Udc) 30 ml PO DAILY PRN PRN Reason: Constipation Stop: 02/15/22 22:27 Sodium Chloride (Sodium Chloride 0.65% Na Soln 45 Ml ([place])) 1 - 2 sprays NA PRN PRN PRN Reason: Nasal Dryness/Congestion Stop: 02/15/22 22:27 Mental Health & Subst Abuse Tx Therapist Name of Therapist: None Senior Internal Auditor Name of Senior Internal Auditor: None Post Discharge Appointments Primary Care Physician Name Of Family Doctor: Branden
[2022-01-20] MEDS ORDERED: ARIPiprazole 5 MG TAB PO SCH (09:00)
--- NOTE | 2022-01-20 11:43 | Psychiatric Progress Note ---
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 He describes clear but brief periods of hypomania. The cycling interferes with his ability to function with school even as his ADHD is treated. He has been on stimulant medication for more than a decade so it is unlikely a major contributor to his mood changes but is being held currently. Diagnostically consistent with bipolar affective disorder, type 2 given no evidence for 5 days of symptoms meeting threshold for acute jose de jesus. Suspect also co-morbid ASD. 01/20/22: remains guarded and difficult to engage with limited insight and judgment which places him at ongoing high risk for suicide especially given his limited ability to discuss potential warning signs, triggers or ways he could seek help or utilize coping skills. He is tolerating the abilify and consents to further titration. Remains unclear to what extent flat affect and limited eye contact may be due to possible ASD versus ongoing depression. No evidence of hyperactivity or mood elevation today. (1) Bipolar II disorder with or without full interepisode recovery: (2) Attention deficit disorder (ADD) in adult: (3) Hypercholesterolemia with hypertriglyceridemia: will need f/u with PCP and consideration to meet with api product manager. Motivational interviewing regarding increasing exercise which he agrees to. 01/20/22: Increase abilify to 10mg qd. Continue guanfacine. Continuing to encourage insight-oriented coping skills work. 01/19/22: Continuing to hold stimulant as he wonders if this contributed to his mood changes and hypomania. Family meeting held today and safety planning done including counseling with Heidy about importance of removing access to guns at home and social work discussed this during his family meeting as well. Continue abilify titration to 7.5 mg qd for BPAD, II. 01/18/22: declines trial of Adderall to replace non-formulary Vyvanse. Does feel his mood was wose on 70 mg Vyvanse and reports his most recent rx was for 20 mg. He is thinking would like prn stimulant upon discharge. Needs family meeting and confirmation re: guns at home as even if returns to school, spring break is near. 01/17/22: The patient was admitted to the [facility] ([facility] health unit) on q15 min checks (behavioral with suicide precautions) for safety. The patient will participate in group, recreational, and milieu therapies and will be offered additional individual and family sessions as clinically appropriate. His home medications were held on admission as antidepressants can contribute to cycling and his Vyvanse is non formulary. Guanfacine ER will be ordered as reviewed risks/benefits and likely helpful for tics. Risks/benefits/alternatives were reviewed re: antipsychotics for mood. Discussion included but was not limited to metabolic side effects, risks of TD and suicidal thoughts. There were no abnormal motor movements other than the rare facial tics at baseline. Fasting glucose and lipid panel ordered for baseline monitoring. Also discussed options of lithium or lamictal. Patient preferred trial of Abilify given how rapidly he could benefit. Will begin 2.5 mg today and then 5 mg qam starting tomorrow. Inventory Assets Strengths: sought help, intelligent Needs: medical withdrawal, family involvement Risk Factors Assessment Male: Yes Do You Have Access To A Gun?: No (not in dorm but need to confirm at home in [place]) Mental Health Diagnoses: Yes Substance Use Disorders: No Previous Attempt: Yes (multiple near attempts (acts of furtherance)) Previous Psychiatric Hospitalization: No Protective Factors Assessment Employed: No Supportive Family: Yes Good Rapport with Provider: Yes Interval History Identifying Information HEIDY CASTELLANOS is a 21-year-old M, [employer] freshman from [place], has a history of undisclosed near suicide attempts, and was admitted on 01/16/22 22:49 on a 201 voluntary commitment for SI with plan. Chief Complaint "I'm improving I think". Review of Systems Sleep Information Total Hours of Sleep: 7.25 Sleep Comments: pt appeared to sleep 1.75 hrs during evening shift. pt on q-15 minute checks Meal Information Percent Meal Consumed - Breakfast: 100 Percent Meal Consumed - Lunch: 100 Percent Meal Consumed - Dinner: 100 Subjective Subjective Patient was seen & assessed and interval progress reviewed with treatment team nursing and social work. Heidy remains quite guarded but has been attending groups. This morning is in his room listening to the radio. He is unable to expand on much of what occurred in his family meeting but he feels it went well. He has been tracking his mood. He feels things are "improving" though he feels he still needs a higher dose of abilify but can't quantify or describe why. Reviewed goal of 10mg per day for effective dose for BPAD II. He feels his sleep has been poor due to the pillow being too flat but found another pillow which he hopes will help his sleep tonight. Denies any medication side effects. When asked about his variable eye contact he states "that's just because my eyes are tired, they get tired easily". Physical Exam Psychiatric Orientation: alert and oriented x 3 Apperance: appropriately dressed and appropriately groomed Eye Contact: + fair eye contact Motor Behavior: no abnormal motor movements Speech: normal rate/rhythm/volume of speech (brief today) Affect: + flat affect Mood: + depressed mood and + anxious mood Thought Process: + circumstantial thought process Thought Content: reality based without delusions Suicidal Thoughts: denies suicidal thoughts, denies suicidal plan and denies suicidal intent Homicidal Thoughts: denies homicidal thoughts Hallucinations: no auditory hallucinations and no visual hallucinations Cognition: recent memory grossly intact, remote memory grossly intact and language grossly intact; + attention not intact (easily distracted) Estimated Intelligence: consistent with education level Insight: + limited insight Judgement: + limited judgement Vital Signs (Past 24 Hours) Last Vital Signs Temp 36.6 C 01/20/22 06:00 Pulse 67 01/20/22 06:47 Resp 14 01/20/22 06:00 BP 98/60 L 01/20/22 06:47 Pulse Ox 99 01/17/22 00:02 Results & Data ([facility]) Current Inpatient Medications Current Inpatient Medications: Current Inpatient Medications Acetaminophen (Acetaminophen 325 Mg Tab) 650 mg PO Q4H PRN PRN Reason: Headache or Minor Fever Stop: 02/15/22 22:27 Al Hydrox/Mg Hydrox/Simethicone (Aluminum/Magnesium Susp 30 Ml Udc) 30 ml PO Q4H PRN PRN Reason: GI Upset Stop: 02/15/22 22:27 Aripiprazole (Aripiprazole 5 Mg Tab) 7.5 mg PO QAM JAC Stop: 02/19/22 08:59 Last Admin: 01/20/22 08:49 Dose: 7.5 mg Documented by: Bismuth Subsalicylate (Bismuth Subsalicylate Liqd 236 Ml) 15 ml PO PRN PRN PRN Reason: Loose Stool Stop: 02/15/22 22:27 Guanfacine HCl (Guanfacine Hcl 1 Mg Ertab) 3 mg PO DAILY JAC Stop: 02/16/22 13:14 Last Admin: 01/20/22 08:57 Dose: 3 mg Documented by: Hydroxyzine HCl (Hydroxyzine Hcl 25 Mg Tab) 50 mg PO HSZ PRN PRN Reason: Insomnia Stop: 02/15/22 22:27 Hydroxyzine HCl (Hydroxyzine Hcl 25 Mg Tab) 25 mg PO Q4H PRN PRN Reason: Anxiety Stop: 02/15/22 22:27 Magnesium Hydroxide (Magnesium Hydroxide Susp 30 Ml Udc) 30 ml PO DAILY PRN PRN Reason: Constipation Stop: 02/15/22 22:27 Sodium Chloride (Sodium Chloride 0.65% Na Soln 45 Ml ([place])) 1 - 2 sprays NA PRN PRN PRN Reason: Nasal Dryness/Congestion Stop: 02/15/22 22:27 Mental Health & Subst Abuse Tx Therapist Name of Therapist: None Lang Path Therapist Name of Lang Path Therapist: None Post Discharge Appointments Primary Care Physician Name Of Family Doctor: DENTON
[2022-01-20] MEDS: hydrOXYzine HCl 25 MG TAB PO PRN ×2 (20:12→21:04)
[2022-01-21] MEDS: ARIPiprazole 10 MG TAB PO SCH (08:36)
[2022-01-21] MEDS: DEXTROAMPHETAMINE/AMPHETAMINE ER 10 MG CAP PO SCH (12:12)
--- NOTE | 2022-01-21 13:54 | Psychiatric Progress Note ---
Date of Service January 21, 2022 Impression / Recommendations Impression Heidy is a 21 yo man and [employer] student who presents with significant vegetative depression and recent SI with near attempt by jumping from a bridge during a mixed phase. He describes clear but brief periods of hypomania. The cycling interferes with his ability to function with school even as his ADHD is treated. He has been on stimulant medication for more than a decade and restarting as mood is stabilizing. Diagnostically consistent with bipolar affective disorder, type 2 given no evidence for 5 days of symptoms meeting threshold for acute jose de jesus. Suspect also co-morbid ASD. 01/21/22: Affect slightly more expansive today, suspect much of his restricted affect is due to ASD he notes improving mood even with limited affect change and ongoing difficulties with eye contact and limited social reciprocity. Continues to tolerate abilify and finds this helpful. Reviewed risks,benefits, alternatives for stimulant medication, he would like to start Adderall XR for ADHD which is reasonable given long history of well documented ADHD which has responded well to stimulants and reduces risk of ongoing academic stress from attentional symptoms. Reviewed risks including but not limited to insomnia, cardiac side effects, anxiety, potential increase risk for mood cycling/hypomania. He would also like to start trazodone for insomnia reviewed risks/benefits/alteratives including but not limited to sedation, potential for SI. (1) Bipolar II disorder with or without full interepisode recovery: (2) Attention deficit disorder (ADD) in adult: (3) Hypercholesterolemia with hypertriglyceridemia: will need f/u with PCP and consideration to meet with manager financial planning. Motivational interviewing regarding increasing exercise which he agrees to. 01/21/22: Continue abilify 10mg qd and guanfacine. Start trazodone 50mg qhs for insomnia. Start Adderall XR 10mg qAM for ADHD. 01/20/22: Increase abilify to 10mg qd. Continue guanfacine. Continuing to encourage insight-oriented coping skills work. 01/19/22: Continuing to hold stimulant as he wonders if this contributed to his mood changes and hypomania. Family meeting held today and safety planning done including counseling with Heidy about importance of removing access to guns at home and social work discussed this during his family meeting as well. Continue abilify titration to 7.5 mg qd for BPAD, II. 2/18/22: declines trial of Adderall to replace non-formulary Vyvanse. Does feel his mood was wose on 70 mg Vyvanse and reports his most recent rx was for 20 mg. He is thinking would like prn stimulant upon discharge. Needs family meeting and confirmation re: guns at home as even if returns to school, spring break is near. 01/17/22: The patient was admitted to the [facility] ([facility] mental health unit) on q15 min checks (behavioral with suicide precautions) for safety. The patient will participate in group, recreational, and milieu therapies and will be offered additional individual and family sessions as clinically appropriate. His home medications were held on admission as antidepressants can contribute to cycling and his Vyvanse is non formulary. Guanfacine ER will be ordered as reviewed risks/benefits and likely helpful for tics. Risks/benefits/alternatives were reviewed re: antipsychotics for mood. Discussion included but was not limited to metabolic side effects, risks of TD and suicidal thoughts. There were no abnormal motor movements other than the rare facial tics at baseline. Fasting glucose and lipid panel ordered for baseline monitoring. Also discussed options of lithium or lamictal. Patient preferred trial of Abilify given how rapidly he could benefit. Will begin 2.5 mg today and then 5 mg qam starting tomorrow. Inventory Assets Strengths: sought help, intelligent Needs: medical withdrawal, family involvement Risk Factors Assessment Male: Yes Do You Have Access To A Gun?: No (not in dorm but need to confirm at home in [place]) Mental Health Diagnoses: Yes Substance Use Disorders: No Previous Attempt: Yes (multiple near attempts (acts of furtherance)) Previous Psychiatric Hospitalization: No Protective Factors Assessment Employed: No Supportive Family: Yes Good Rapport with Provider: Yes Interval History Identifying Information HEIDY CASTELLANOS is a 21-year-old M, [employer] freshman from [place], has a history of undisclosed near suicide attempts, and was admitted on 01/16/22 22:49 on a 201 voluntary commitment for SI with plan. Chief Complaint "I'm ok". Review of Systems Sleep Information Total Hours of Sleep: 7 Sleep Comments: pt appeared to sleep 1.75 hrs during evening shift. pt on q-15 minute checks Meal Information Percent Meal Consumed - Breakfast: 100 Percent Meal Consumed - Lunch: 100 Percent Meal Consumed - Dinner: 100 Subjective Subjective Patient was seen & assessed and interval progress reviewed with treatment team nursing and social work. Heidy remains isolative to his room during most of the day but has been attending groups. He slept poorly again last night and attributes this to impacting his mood; however he continues to feel that his mood has improved with less of the cycling since starting abilify. He denies SI. We review anticipated stressors and ways to cope should SI re-emerge in the future. he feels that having less mood cycling will help reduce risk of SI occurring again and he notes that in the future he will seek help "much earlier" as it finds it more difficult to reach out for support when his mood worsens and SI intensifies. Reviewed with him potential ways to have his parents involved as supports. He has noticed that his thoughts have been "faster" like he notices when he is off his ADHD medication and is interested in starting Adderall XR as he had discussed previously. He is also interested in something to help with sleep. He denies any side effects from abilify. Physical Exam Psychiatric Orientation: alert and oriented x 3 Apperance: appropriately dressed and appropriately groomed Eye Contact: + fair eye contact Motor Behavior: no abnormal motor movements and + psychomotor agitation (bouncing leg repeatedly ) Speech: normal rate/rhythm/volume of speech Affect: + flat affect Mood: + depressed mood and + anxious mood Thought Process: + circumstantial thought process Thought Content: reality based without delusions Suicidal Thoughts: denies suicidal thoughts, denies suicidal plan and denies suicidal intent Homicidal Thoughts: denies homicidal thoughts Hallucinations: no auditory hallucinations and no visual hallucinations Cognition: recent memory grossly intact, remote memory grossly intact and language grossly intact; + attention not intact (easily distracted) Estimated Intelligence: consistent with education level Insight: + limited insight Judgement: + limited judgement Vital Signs (Past 24 Hours) Last Vital Signs Temp 36.6 C 01/21/22 06:49 Pulse 88 01/21/22 06:50 Resp 16 01/21/22 06:49 BP 109/61 01/21/22 06:50 Pulse Ox 99 01/17/22 00:02 Results & Data ([facility]) Current Inpatient Medications Current Inpatient Medications: Current Inpatient Medications Acetaminophen (Acetaminophen 325 Mg Tab) 650 mg PO Q4H PRN PRN Reason: Headache or Minor Fever Stop: 02/15/22 22:27 Al Hydrox/Mg Hydrox/Simethicone (Aluminum/Magnesium Susp 30 Ml Udc) 30 ml PO Q4H PRN PRN Reason: GI Upset Stop: 02/15/22 22:27 Amphetamine/Dextroamphetamine (Dextroamphetamine/Amphetamine Er 10 Mg Cap) 10 mg PO QAM JAC Stop: 02/04/22 12:14 Last Admin: 01/21/22 12:12 Dose: 10 mg Documented by: Aripiprazole (Aripiprazole 10 Mg Tab) 10 mg PO QAM JAC Stop: 02/20/22 08:59 Last Admin: 01/21/22 08:36 Dose: 10 mg Documented by: Bismuth Subsalicylate (Bismuth Subsalicylate Liqd 236 Ml) 15 ml PO PRN PRN PRN Reason: Loose Stool Stop: 02/15/22 22:27 Guanfacine HCl (Guanfacine Hcl 1 Mg Ertab) 3 mg PO DAILY JAC Stop: 02/16/22 13:14 Last Admin: 01/21/22 08:37 Dose: 3 mg Documented by: Hydroxyzine HCl (Hydroxyzine Hcl 25 Mg Tab) 50 mg PO HSZ PRN PRN Reason: Insomnia Stop: 02/15/22 22:27 Last Admin: 01/20/22 21:04 Dose: 50 mg Documented by: Hydroxyzine HCl (Hydroxyzine Hcl 25 Mg Tab) 25 mg PO Q4H PRN PRN Reason: Anxiety Stop: 02/15/22 22:27 Magnesium Hydroxide (Magnesium Hydroxide Susp 30 Ml Udc) 30 ml PO DAILY PRN PRN Reason: Constipation Stop: 02/15/22 22:27 Sodium Chloride (Sodium Chloride 0.65% Na Soln 45 Ml ([place])) 1 - 2 sprays NA PRN PRN PRN Reason: Nasal Dryness/Congestion Stop: 02/15/22 22:27 Mental Health & Subst Abuse Tx Therapist Name of Therapist: None Certified Ophthalmic Surgical Assistant Name of Certified Ophthalmic Surgical Assistant: None Post Discharge Appointments Primary Care Physician Name Of Family Doctor: Branden
[2022-01-21] MEDS: traZODone HCL 50 MG TAB PO SCH (20:36)
[2022-01-21] MEDS: SODIUM CHLORIDE 0.65% NA SOLN 45 ML (OCEAN) PRN (22:26)
[2022-01-22] MEDS: DEXTROAMPHETAMINE/AMPHETAMINE ER 10 MG CAP PO SCH ×2 (08:24→09:02)
[2022-01-22] MEDS: ARIPiprazole 10 MG TAB PO SCH (08:24)
--- NOTE | 2022-01-22 14:08 | Psychiatric Progress Note ---
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 He describes clear but brief periods of hypomania. The cycling interferes with his ability to function with school even as his ADHD is treated. He has been on stimulant medication for more than a decade and restarting as mood is stabilizing. Diagnostically consistent with bipolar affective disorder, type 2 given no evidence for 5 days of symptoms meeting threshold for acute jose de jesus. Suspect also co-morbid ASD. 01/22/22: Continues to show steady improvement, affect remains slightly more expansive and reports mood stability and improvement with sleep. Tolerating psychiatric medications well without side effects. Reviewed suicide safety plan again today to help solidify his coping skills/warning signs/supports given that his previous rehearsal behaviors have been quite impulsive so working to continue to build awareness of triggering events and ways to intervene early should he notice changes in his mood. He's been doing suduko and word searches and feels his focus and concentration has improved and that he'll be able to attend to his school work. (1) Bipolar II disorder with or without full interepisode recovery: (2) Attention deficit disorder (ADD) in adult: (3) Hypercholesterolemia with hypertriglyceridemia: will need f/u with PCP and consideration to meet with video game technician. Motivational interviewing regarding increasing exercise which he agrees to. 01/22/22: Continue abilify, trazodone, Adderall XR. Safety planning reviewed and ongoing discussions regarding ways to increase insight and to practice coping skills. 01/21/22: Continue abilify 10mg qd and guanfacine. Start trazodone 50mg qhs for insomnia. Start Adderall XR 10mg qAM for ADHD. 01/20/22: Increase abilify to 10mg qd. Continue guanfacine. Continuing to encourage insight-oriented coping skills work. 01/19/22: Continuing to hold stimulant as he wonders if this contributed to his mood changes and hypomania. Family meeting held today and safety planning done including counseling with Heidy about importance of removing access to guns at home and social work discussed this during his family meeting as well. Continue abilify titration to 7.5 mg qd for BPAD, II. 01/18/22: declines trial of Adderall to replace non-formulary Vyvanse. Does feel his mood was wose on 70 mg Vyvanse and reports his most recent rx was for 20 mg. He is thinking would like prn stimulant upon discharge. Needs family meeting and confirmation re: guns at home as even if returns to school, spring break is near. 01/17/22: The patient was admitted to the [facility] ([facility]) on q15 min checks (behavioral with suicide precautions) for safety. The patient will participate in group, recreational, and milieu therapies and will be offered additional individual and family sessions as clinically appropriate. His home medications were held on admission as antidepressants can contribute to cycling and his Vyvanse is non formulary. Guanfacine ER will be ordered as reviewed risks/benefits and likely helpful for tics. Risks/benefits/alternatives were reviewed re: antipsychotics for mood. Discussion included but was not limited to metabolic side effects, risks of TD and suicidal thoughts. There were no abnormal motor movements other than the rare facial tics at baseline. Fasting glucose and lipid panel ordered for baseline monitoring. Also discussed options of lithium or lamictal. Patient preferred trial of Abilify given how rapidly he could benefit. Will begin 2.5 mg today and then 5 mg qam starting tomorrow. Inventory Assets Strengths: sought help, intelligent Needs: medical withdrawal, family involvement Risk Factors Assessment Male: Yes Do You Have Access To A Gun?: No (not in dorm but need to confirm at home in [place]) Mental Health Diagnoses: Yes Substance Use Disorders: No Previous Attempt: Yes (multiple near attempts (acts of furtherance)) Previous Psychiatric Hospitalization: No Protective Factors Assessment Employed: No Supportive Family: Yes Good Rapport with Provider: Yes Interval History Identifying Information HEIDY CASTELLANOS is a 21-year-old M, [employer] freshman from [place], has a history of undisclosed near suicide attempts, and was admitted on 01/16/22 22:49 on a 201 voluntary commitment for SI with plan. Chief Complaint "My mood feels stable". Review of Systems Sleep Information Total Hours of Sleep: 7 Sleep Comments: pt given trazodone per rn. pt on q-15 minute checks Meal Information Percent Meal Consumed - Breakfast: 100 Percent Meal Consumed - Lunch: 100 Percent Meal Consumed - Dinner: 100 Subjective Subjective Patient was seen & assessed and interval progress reviewed with treatment team nursing and social work. Slightly more engaged with peers, attending groups. Slept well last night. Liked the trazodone and found it very helpful. Denies any side effects from abilify, continues to feel this is helping him maintain a stable mood. He reports feeling "like himself" with starting Adderall XR. Denies SI. Engaged in further safety planning with staff. Physical Exam Psychiatric Orientation: alert and oriented x 3 Apperance: appropriately dressed and appropriately groomed Eye Contact: + fair eye contact Motor Behavior: no abnormal motor movements Speech: normal rate/rhythm/volume of speech Affect: + constricted affect Mood: no depressed mood and no anxious mood Thought Process: + circumstantial thought process Thought Content: reality based without delusions Suicidal Thoughts: denies suicidal thoughts Homicidal Thoughts: denies homicidal thoughts Hallucinations: no auditory hallucinations and no visual hallucinations Cognition: recent memory grossly intact, remote memory grossly intact, attention grossly intact and language grossly intact Estimated Intelligence: consistent with education level Insight: + limited insight Judgement: + fair judgement Vital Signs (Past 24 Hours) Last Vital Signs Temp 36.8 C 01/22/22 06:54 Pulse 87 01/22/22 06:55 Resp 16 01/22/22 06:54 BP 120/75 01/22/22 06:55 Pulse Ox 99 01/17/22 00:02 Results & Data ([facility]) Current Inpatient Medications Current Inpatient Medications: Current Inpatient Medications Acetaminophen (Acetaminophen 325 Mg Tab) 650 mg PO Q4H PRN PRN Reason: Headache or Minor Fever Stop: 02/15/22 22:27 Al Hydrox/Mg Hydrox/Simethicone (Aluminum/Magnesium Susp 30 Ml Udc) 30 ml PO Q4H PRN PRN Reason: GI Upset Stop: 02/15/22 22:27 Amphetamine/Dextroamphetamine (Dextroamphetamine/Amphetamine Er 10 Mg Cap) 10 mg PO QAM JAC Stop: 02/05/22 08:59 Last Admin: 01/22/22 09:02 Dose: Not Given Documented by: Aripiprazole (Aripiprazole 10 Mg Tab) 10 mg PO QAM JAC Stop: 02/20/22 08:59 Last Admin: 01/22/22 08:24 Dose: 10 mg Documented by: Bismuth Subsalicylate (Bismuth Subsalicylate Liqd 236 Ml) 15 ml PO PRN PRN PRN Reason: Loose Stool Stop: 02/15/22 22:27 Guanfacine HCl (Guanfacine Hcl 1 Mg Ertab) 3 mg PO DAILY JAC Stop: 02/16/22 13:14 Last Admin: 01/22/22 08:24 Dose: 3 mg Documented by: Hydroxyzine HCl (Hydroxyzine Hcl 25 Mg Tab) 50 mg PO HSZ PRN PRN Reason: Insomnia Stop: 02/15/22 22:27 Last Admin: 01/20/22 21:04 Dose: 50 mg Documented by: Hydroxyzine HCl (Hydroxyzine Hcl 25 Mg Tab) 25 mg PO Q4H PRN PRN Reason: Anxiety Stop: 02/15/22 22:27 Last Admin: 01/21/22 21:17 Dose: 25 mg Documented by: Magnesium Hydroxide (Magnesium Hydroxide Susp 30 Ml Udc) 30 ml PO DAILY PRN PRN Reason: Constipation Stop: 02/15/22 22:27 Sodium Chloride (Sodium Chloride 0.65% Na Soln 45 Ml ([place])) 1 - 2 sprays NA PRN PRN PRN Reason: Nasal Dryness/Congestion Stop: 02/15/22 22:27 Last Admin: 01/21/22 22:26 Dose: 2 sprays Documented by: Trazodone HCl (Trazodone Hcl 50 Mg Tab) 50 mg PO HS JAC Stop: 02/20/22 21:59 Last Admin: 01/21/22 20:36 Dose: 50 mg Documented by: Mental Health & Subst Abuse Tx Psychiatrist Name of Psychiatrist: [facility] Psychiatrist's Date of Appointment with Psychiatrist: 02/05/22 Time of Appointment with Psychiatrist: 3:00 PM Therapist Name of Therapist: None Creative Coordinator Name of Creative Coordinator: None Post Discharge Appointments Primary Care Physician Name Of Family Doctor: [facility] Primary Care Date of Appointment with PCP: 01/31/22 Time of Appointment with PCP: 1:20pm Provider Appointment Comment: [facility]
[2022-01-22] MEDS: traZODone HCL 50 MG TAB PO SCH (20:21)
[2022-01-22] MEDS: SODIUM CHLORIDE 0.65% NA SOLN 45 ML (OCEAN) PRN (20:57)
[2022-01-23] MEDS: DEXTROAMPHETAMINE/AMPHETAMINE ER 10 MG CAP PO SCH (09:34)
[2022-01-23] MEDS: ARIPiprazole 10 MG TAB PO SCH (09:34)
--- NOTE | 2022-01-23 10:26 | Discharge Summary ---
Date of Service January 23, 2022 History of Present Illness Rui was referred by [facility] following a crisis call as he was experiencing severe depression and had act of furtherance by going to a bridge with the intention to commit suicide 2 days prior. He reports that he couldn't focus and had "mixed" depression and restlessness and "couldn't stand it anymore, I'm useless with school and can't focus". Since Friday he has been essentially in bed, hypersomnolent (sleeping greater than 10 hours and still being tired), and not eating well. "I have to force myself to eat." He notes anhedonia and inability to process where as a few days prior he had racing thoughts, increased energy, and feeling somewhat impulsive. He reports a recent period of inflated self esteem (though can't think of an example). During periods of elevated mood that last about 4-5 days he will sleep 3 hours a night and be "super productive" with increased rate of speech. He buys "stupid stuff". He becomes less productive due to fatigue as the episode progresses. His depressed periods can last 2-5 weeks. He is functioning so poorly that he is thinking of withdrawing for the semester and going home but he is hesitant to tell his parents "everything" as he worries they will make him attend school closer to home. He denies psychotic symptoms. He reports taking his prescribed medications regularly. He was rather evasive re: details of past near suicide attempts, one in 2018 sounds like he may have considered jumping as well and perhaps 2 occasions having a gun out at home. Physical Exam Vital Signs (Past 24 Hours) Last Vital Signs Temp 36.5 C 01/23/22 06:39 Pulse 93 H 01/23/22 06:39 Resp 18 01/23/22 06:39 BP 126/78 01/23/22 06:39 Pulse Ox 99 01/17/22 00:02 See admission H&P and DOD summary. Principal Diagnosis Bipolar Affective Disorder type II, depressive episode Psychiatric Data See daily stay summary. In short, patient was engaged with the social/therapeutic milieu of the unit, safety was maintained and the patient was cooperative with care. Medication changes included discontinuation of fluoxetine and initiation of Abilify for BPAD type II and they tolerated this well. His prior to admission Vyvanse was discontinued during admission as it was non- formulary and he was then started on Adderall XR which he found helpful and desired to continue after discharge in lieu of Vyvanse for ADHD. He was briefly trialed on trazodone for insomnia but developed side effects and desired to utilize hydroxyzine as needed for insomnia instead. He started mood tracking and we discussed the importance of maintaining regular social rhythms including sleep, meal times, and exercise. He found this helpful and reflected that hospitalization and the medication changes had him feeling "in control" of his mood shifts and that he felt "normal" for the first time in many months. He consistently denied SI in the days leading up to discharge and reviewed his safety plan extensively with staff throughout the days leading up to discharge. Diagnostically it was also felt that he may demonstrate some symptoms consistent with ASD which may also contribute to some of his difficulty discussing his emotions at times. A family session was held and safety plan was completed prior to discharge. Baseline labs of fasting glucose, fasting lipid profile, and weight were preformed on admission and notable for elevated triglycerides (372), elevated cholesterol (288), and elevated LDL (179). He was scheduled for a primary care follow-up appointment to discuss his hypertriglyceridemia and hypercholesterolemia which will require ongoing monitoring/management, particularly given that he is now also taking Abilify. Recommend repeat weight in one month. Recommend repeat fasting glucose and fasting lipid profile every 12 weeks and then annually (at minimum). If symptoms arise recommend checking BP, EKG, prolactin level as clinically indicated or relevant. Day of Discharge Assessment Today the patient voices readiness for discharge. They note improvement in mood, anxiety and impulsivity. They deny thoughts of harm to self or others. Thoughts are organized and they are clinically improved from admission. There is no evidence of psychosis. They improved in the hospital with support and medication adjustments. They agree to take medications as prescribed and keep follow-up appointments. At the time of the discharge they are deemed to be stable and appropriate for outpatient level of care. They are not deemed to be at imminent risk of harm to self or others. They are aware of emergency and crisis services. Knows to call 911 or go to nearest emergency care center if in a crisis which cannot be handled as an outpatient. Transition of Care Transition Of Care Record: was reviewed with the patient Advance Directives Advance Directives Information Provided: No Advance Directives: No Mental Health Advance Directive: No Advance Directives on File: No Living Will: No Power of Life Insurance Sales: No Advance Directives Reason:: Declines as Mental Health Visit. Risk Factors Assessment Acute risk is low given denial of SI, future-oriented about school and career goals, strong family supports, and improvement in depressive symptoms and improvement in impulsivity. Chronic risk is moderate given history of suicide rehearsal behaviors though also with many protective factors. Most significant modifiable risk factor is ongoing management of mood symptoms for which he remains motivated to engage with outpatient providers and feels well supported by his safety plan. Male: Yes Do You Have Access To A Gun?: No (not in dorm and his parents confirmed guns were secured at home in [place]) Health Problems: No Mental Health Diagnoses: Yes Substance Use Disorders: No Previous Attempt: Yes (multiple near attempts (acts of furtherance)) Previous Psychiatric Hospitalization: No Hopelessness: No Smoker: No Protective Factors Assessment Employed: No Stable Relationships: Yes Supportive Family: Yes Good Rapport with Provider: Yes Discharge Data Lab Results 01/16/22 01/16/22 01/16/22 19:35 19:35 19:35 WBC RBC Hgb Hct MCV MCH MCHC RDW Std Deviation RDW Coeff of Brigida Plt Count MPV Immature Gran % (Auto) Neut % (Auto) Lymph % (Auto) Edmunds % (Auto) Eos % (Auto) Baso % (Auto) Neut # (Auto) Lymph # (Auto) Edmunds # (Auto) Eos # (Auto) Baso # (Auto) Immature Gran # (Auto) Sodium Potassium Chloride Carbon Dioxide Anion Gap BUN Creatinine Est Cr Clr Drug Dosing Est GFR ( Amer) Est GFR (Non-Af Amer) BUN/Creatinine Ratio Glucose Fasting Glucose Calcium Total Bilirubin AST ALT Alkaline Phosphatase Total Protein Albumin Globulin Albumin/Globulin Ratio Triglycerides Cholesterol LDL Cholesterol, Calc VLDL Cholesterol, Calc HDL Cholesterol Cholesterol/HDL Ratio TSH Urine Color Yellow Urine Appearance Turbid A Urine pH 6.5 Ur Specific Walk[place] 1.025 Urine Protein Negative Urine Glucose (UA) Negative Urine Ketones Negative Urine Blood Negative Urine Nitrite Negative Urine Bilirubin Negative Urine Urobilinogen Negative Ur Leukocyte Esterase Negative Urine WBC (Auto) 1-5 Urine RBC (Auto) 10-30 H U Hyaline Cast (Auto) 1-5 U Epithel Cells (Auto) 20-30 H Urine Bacteria (Auto) Negative Salicylates Urine Opiates Screen Neg Ur Methadone, Qual Neg Acetaminophen Urine Barbiturates Neg Ur Phencyclidine (PCP) Neg U Amphetamin/Meth Scrn Neg MDMA (Ecstasy) Screen Neg U Benzodiazepines Scrn Neg Ur Cocaine Metabolite Neg U Marijuana (THC) Screen Neg Ethyl Alcohol mg/dL SARS-CoV-2, RNA, NAAT NEGATIVE 01/16/22 01/16/22 01/16/22 19:50 19:50 19:50 WBC 6.95 RBC 5.03 Hgb 15.3 Hct 45.8 MCV 91.1 MCH 30.4 MCHC 33.4 RDW Std Deviation 45.8 RDW Coeff of Brigida 13.7 Plt Count 323 MPV 10.5 H Immature Gran % (Auto) 0.4 Neut % (Auto) 58.7 Lymph % (Auto) 30.5 Edmunds % (Auto) 8.3 Eos % (Auto) 2.0 Baso % (Auto) 0.1 Neut # (Auto) 4.07 Lymph # (Auto) 2.12 Edmunds # (Auto) 0.58 Eos # (Auto) 0.14 Baso # (Auto) 0.01 Immature Gran # (Auto) 0.03 H Sodium 139 Potassium 3.9 Chloride 102 Carbon Dioxide 28 Anion Gap 9 BUN 14 Creatinine 0.58 L Est Cr Clr Drug Dosing 211.5 Est GFR ( Amer) > 150.0 Est GFR (Non-Af Amer) 147.8 BUN/Creatinine Ratio 24.1 H Glucose 103 H Fasting Glucose Calcium 9.9 Total Bilirubin 0.3 AST 33 ALT 63 H Alkaline Phosphatase 110 H Total Protein 7.8 Albumin 4.8 Globulin 3.0 Albumin/Globulin Ratio 1.6 Triglycerides Cholesterol LDL Cholesterol, Calc VLDL Cholesterol, Calc HDL Cholesterol Cholesterol/HDL Ratio TSH 1.185 Urine Color Urine Appearance Urine pH Ur Specific [place] Urine Protein Urine Glucose (UA) Urine Ketones Urine Blood Urine Nitrite Urine Bilirubin Urine Urobilinogen Ur Leukocyte Esterase Urine WBC (Auto) Urine RBC (Auto) U Hyaline Cast (Auto) U Epithel Cells (Auto) Urine Bacteria (Auto) Salicylates Urine Opiates Screen Ur Methadone, Qual Acetaminophen Urine Barbiturates Ur Phencyclidine (PCP) U Amphetamin/Meth Scrn MDMA (Ecstasy) Screen U Benzodiazepines Scrn Ur Cocaine Metabolite U Marijuana (THC) Screen Ethyl Alcohol mg/dL SARS-CoV-2, RNA, NAAT 01/16/22 01/16/22 01/18/22 19:50 19:50 07:50 WBC RBC Hgb Hct MCV MCH MCHC RDW Std Deviation RDW Coeff of Brigida Plt Count MPV Immature Gran % (Auto) Neut % (Auto) Lymph % (Auto) Edmunds % (Auto) Eos % (Auto) Baso % (Auto) Neut # (Auto) Lymph # (Auto) Edmunds # (Auto) Eos # (Auto) Baso # (Auto) Immature Gran # (Auto) Sodium Potassium Chloride Carbon Dioxide Anion Gap BUN Creatinine Est Cr Clr Drug Dosing Est GFR ( Amer) Est GFR (Non-Af Amer) BUN/Creatinine Ratio Glucose Fasting Glucose 93 Calcium Total Bilirubin AST ALT Alkaline Phosphatase Total Protein Albumin Globulin Albumin/Globulin Ratio Triglycerides 372 H Cholesterol 288 H LDL Cholesterol, Calc 179 VLDL Cholesterol, Calc 74 H HDL Cholesterol 35 Cholesterol/HDL Ratio 8.2 H TSH Urine Color Urine Appearance Urine pH Ur Specific [place] Urine Protein Urine Glucose (UA) Urine Ketones Urine Blood Urine Nitrite Urine Bilirubin Urine Urobilinogen Ur Leukocyte Esterase Urine WBC (Auto) Urine RBC (Auto) U Hyaline Cast (Auto) U Epithel Cells (Auto) Urine Bacteria (Auto) Salicylates < 3.0 L Urine Opiates Screen Ur Methadone, Qual Acetaminophen < 3 L Urine Barbiturates Ur Phencyclidine (PCP) U Amphetamin/Meth Scrn MDMA (Ecstasy) Screen U Benzodiazepines Scrn Ur Cocaine Metabolite U Marijuana (THC) Screen Ethyl Alcohol mg/dL < 10.0 SARS-CoV-2, RNA, NAAT Hospital Course (1) Bipolar II disorder with or without full interepisode recovery: (2) Attention deficit disorder (ADD) in adult: (3) Hypercholesterolemia with hypertriglyceridemia: will need f/u with PCP and consideration to meet with diesel machinist. Motivational interviewing regarding increasing exercise which he agrees to. 01/23/22: He developed a stuffy nose which he attributes to trazodone so requested to discontinue this, he prefers using hydroxyzine for insomnia. Feels excited for discharge. Reviewed option for use of mobile frederick for additional way to access safety plan easily if needed. 01/22/22: Continue abilify, trazodone, Adderall XR. Safety planning reviewed and ongoing discussions regarding ways to increase insight and to practice coping skills. 01/21/22: Continue abilify 10mg qd and guanfacine. Start trazodone 50mg qhs for insomnia. Start Adderall XR 10mg qAM for ADHD. 01/20/22: Increase abilify to 10mg qd. Continue guanfacine. Continuing to encourage insight-oriented coping skills work. 01/19/22: Continuing to hold stimulant as he wonders if this contributed to his mood changes and hypomania. Family meeting held today and safety planning done including counseling with Rui about importance of removing access to guns at home and social work discussed this during his family meeting as well. Continue abilify titration to 7.5 mg qd for BPAD, II. 01/18/22: declines trial of Adderall to replace non-formulary Vyvanse. Does feel his mood was wose on 70 mg Vyvanse and reports his most recent rx was for 20 mg. He is thinking would like prn stimulant upon discharge. Needs family meeting and confirmation re: guns at home as even if returns to school, spring break is near. 01/17/22: The patient was admitted to the [facility] ([facility] mental health unit) on q15 min checks (behavioral with suicide precautions) for safety. The patient will participate in group, recreational, and milieu therapies and will be offered additional individual and family sessions as clinically appropriate. His home medications were held on admission as antidepressants can contribute to cycling and his Vyvanse is non formulary. Guanfacine ER will be ordered as reviewed risks/benefits and likely helpful for tics. Risks/benefits/alternatives were reviewed re: antipsychotics for mood. Discussion included but was not limited to metabolic side effects, risks of TD and suicidal thoughts. There were no abnormal motor movements other than the rare facial tics at baseline. Fasting glucose and lipid panel ordered for baseline monitoring. Also discussed options of lithium or lamictal. Patient preferred trial of Abilify given how rapidly he could benefit. Will begin 2.5 mg today and then 5 mg qam starting tomorrow. Mental Health & Subst Abuse Tx Psychiatrist Name of Psychiatrist: U[facility] Psychiatrist's Date of Appointment with Psychiatrist: 02/05/22 Time of Appointment with Psychiatrist: 3:00 PM Psychiatric Appointment Comment: [facility] Therapist Name of Therapist: MIRZA Hernández Therapist's Date of Therapist Appointment: 01/29/22 Time of Therapist Appointment: 2:30pm Therapy Appointment Comment: [facility] Strategic Buyer Name of Strategic Buyer: None Post Discharge Appointments Primary Care Physician Name Of Family Doctor: [facility] Date of Appointment with PCP: 01/31/22 Time of Appointment with PCP: 1:20pm Provider Appointment Comment: [facility] Other #1: Name of Aftercare Appointment: [facility] Phone Number of Aftercare Appointment: [phone] Date of Aftercare Appointment: 01/24/22 Time of Aftercare Appointment: 2:00 p.m. Aftercare Appointment Comment: [email or web address] Contact Information Discharge Discharge Address: [facility] Discharge Plan Discharge Items Patient Disposition: Home - Self-Care Reason For Visit: MHE Discharge Diagnosis: Bipolar Disorder Type II, depressive episode Activity: Resume your previous activity Non-emergency contact: Primary Care Provider, Psychiatrist and Therapist Call non-emergency contact if: you have any medication questions and your symptoms worsen Follow-up/Referrals: [facility] [Primary Care Provider] - Diet: Regular Addtl Attending Provider Instructions: SPECIAL CARE INSTRUCTIONS: 1. Follow through with your scheduled aftercare appointments. If unable to keep an appointment, please call to reschedule. 2. Take your medication only as prescribed. Medication should not be changed or stopped without the approval of your doctor. In the event of worsening symptoms or concerns about side effects, contact your doctor immediately. 3. Utilize new healthy coping skills, anger management skills, and stress management skills learned during your hospitalization. Journal feelings and process them with a support person. Identify stressors or situations that may result in relapse, deterioration or inappropriate behaviors and develop a plan to deal with those issues. 4. If your coping skills are ineffective and you are in crisis, contact your outpatient providers for direction. If unable to reach your providers, please call the [facility] CRISIS LINE AT , go to the [facility] walk-in center at [address], [address], [place], or go to the closest Emergency Room. 5. Avoid alcohol and un-prescribed drugs. 6. You have been provided with the Mental Health Advance Directives Pamphlet for your review. 7. Your condition is stable for discharge to outpatient level of care, but recovery is an ongoing process. Ifthoughts to harm yourself or others return, follow the safety plan developed during your stay. Planning for a safe return home includes securing weapons. Our treatment team recommends weaponsbe removed from the home until your outpatient provider reassesses your progress. In rare cases where the items themselvescannot be removed, guns and ammunitionshould be secured separatelyand keys stored by a reliable personoutside of the home. If you were admitted on an involuntary commitment, the police or other legal authorities may be involved in this process. AFTERCARE APPOINTMENTS: * Please call your insurance company prior to your scheduled appointment to confirm your aftercare providers are covered. Take your insurance information to your appointments. WHO TO CALL AND WHEN: Medical Emergencies: For questions or emergencies related to your hospital stay, please contact the Inpatient Behavioral Health Unit at [phone]. A color mixer is on-call 23/06 for the Behavioral Health Unit for emergencies At any time you feel your situation is an emergency, you may also call 911 immediately. Pending Studies at Discharge: No Stand-Alone Forms: My [facility] Medications and DC Order Prescriptions: New dextroamphetamine-amphetamine 10 mg Capsule,Extended Release 24hr 10 mg PO QAM 30 Days Qty: 30 RF: 0 aripiprazole [Abilify] 10 mg Tablet 10 mg PO QAM 30 Days Qty: 30 RF: 0 hydroxyzine HCl 50 mg tablet 50 mg PO HS PRN (Reason: insomnia) 30 Days Qty: 15 RF: 0 Continued guanfacine 3 mg Tablet Extended Release 24 Hr 3 mg PO QAM RF: 0 ibuprofen [Motrin IB] 200 mg Tablet 400 mg PO USEASDIRECTD PRN (Reason: Fever Or Pain) RF: 0 Discontinued fluoxetine [Prozac] 20 mg Capsule 20 mg PO QAM RF: 0 Vyvanse 70 mg Capsule 70 mg PO QAM RF: 0 Discharge Orders: Discharge Order (Routine); Ordered 01/23/22 Ordered By: Soha Osorio/Other Patient Handouts: Journaling for Mental Health, Depression: Tips to Help Yourself, Cholesterol Lifestyle Changes Admission Data Admit Date/Time: 01/16/22 22:49 Attending Provider: Kacey Dee Admit Provider: Kacey Dee Primary Care Provider: [facility] Other Interventions: Discharge Summary Assessment (RN) Last Done: 01/23/22 10:28 PSY Interdisciplinary Discharge Planning Last Done: 01/23/22 10:32 Coding Level of Care Code 36413 D/C day mgmt > 30 min Diagnoses Bipolar II disorder with or without full interepisode recovery F31.81 Attention deficit disorder (ADD) in adult F98.8 Hypercholesterolemia with hypertriglyceridemia E78.2 Time Spent (min) 45
== END 2022-01-23 11:18 | disposition home or self-care (01) | DRG 885 ==
LOC: ED 18:43 → 3S 22:38